=== PATIENT | male | born 1960 | race Caucasian/White ===

== ENCOUNTER → 2018-02-20 | Outpatient (CLI) | payer OTHER ==
[~2018-02-20] MED LIST: ALLOPURINOL 30300 M2 PO; CARVEDILOL12.5 MG PO; CELLCEPT500 MG PO; LEVOTHYROXIN0.125 M1 PO; MULTIVITAMINS1 EAC7 PO; NORVASC5 MG PO; PROGRAF 1 MG1 MG PO; PROTONIX40 M1 PO; SODIUM BICARBO650 M3 PO; VITAMIN D2000 UNIT PO
== END ==
LOC: M.LAB 16:12
DX: E87.5 Hyperkalemia (principal)

== ENCOUNTER → 2018-12-08 | Outpatient (CLI) | payer OTHER ==
[2018-12-08 22:06] LABS: TESTOSTERONE 252 ng/dL (264-916)
== END ==
LOC: M.LAB 13:57
DX: E29.1 Testicular hypofunction (principal)

== ENCOUNTER 2019-04-23 14:16 | Inpatient (IN) | payer OTHER ==
[2019-04-23] VITALS (9 sets, daily range): BP systolic 76–120; BP diastolic 46–62
[~2019-04-23] VITALS: Ht 190.5 cm; Wt 140.9 kg
--- NOTE | ~2019-04-23 | CON ---
[address] [address] CONSULTATION Name: MYCHAL FARR [place] Room: [address] IN .R.#: [id number] Admission: 04/23/19 Attend Phys: Raya Frank MD Discharge: Date of : 62 Report #: [id number] THIS REPORT FOR: //name// CC: FAM unknown [facility] Raya Frank DATE OF SERVICE: 04/24/2019 INFECTIOUS DISEASE CONSULTATION ATTENDING PHYSICIAN: Dr. Frank. REASON FOR CONSULTATION: Liver abscess. HISTORY OF PRESENT ILLNESS: A 58-year-old white man unwell for several days with fevers and significant weakness, so much so he did not attend his dialysis session yesterday. He is admitted. CT scan of abdomen revealed right-sided liver abscess. He has received treatment with vancomycin, cefepime, ceftriaxone and Levaquin. Voices no major complaints at present. Plans are being made for transfer to his transplant unit at [facility]. DRUG ALLERGIES: CODEINE, PENICILLIN, DOES NOT WORK FOR HIM, THAT IS WHAT HIS MOTHER TOLD HIM. MEDICATIONS: At home, he is on treatment with Prograf 1 mg p.o. b.i.d. and mycophenolate mofetil 500 mg b.i.d. as well as carvedilol, pantoprazole, multivitamins, Ursodiol, levothyroxine, cholecalciferol. He is no longer using albuterol, which he elected to take for joint aches and pains, which he thought it was gout, his manager play advising against it. PAST MEDICAL HISTORY: Status post liver transplantation; kidney transplantation, the kidney transplantation has failed and he is requiring hemodialysis; previous cigarette smoking; gastric bypass surgery; arm fistula for dialysis; bladder lift. SOCIAL HISTORY: See H and P, old records. FAMILY HISTORY: See H and P, old records. REVIEW OF SYSTEMS: Nausea, vomiting, diarrhea, fevers at 102.8, malaise, and weakness that appears to have improved some since he is here. PHYSICAL EXAMINATION: GENERAL: Well-developed man, not toxic-looking. VITAL SIGNS: Presenting with following vital signs: Temperature 100.7; pulse [facility] [address] [place] [address] CONSULTATION Name: MYCHAL FARR Room: [address] IN [facility]#: [id number] Admission: 04/23/19 Attend Phys: Raya Frank MD Discharge: Date of : 62 Report #: [id number]; BP low at 103/56, was as low as 76/46; O2 saturation 94% on room air. HEENMT: Within range. NECK: Supple. LUNGS: Clear. HEART: S1, S2. ABDOMEN: Question hepatosplenomegaly. Surgical scars. GENITALIA AND RECTAL: Deferred. EXTREMITIES: Normal. LABORATORY DATA: Sodium 135, potassium 2.9, chloride 97, BUN 62, creatinine 10.1, glucose 123, bilirubin 0.8, alkaline phosphatase mildly elevated at 134, albumin low at 2.6 g/dL. NT-proBNP elevated ____. WBC 11.6, hemoglobin 9.1, platelets 121,000. White blood cell count differential, 83% segmented neutrophils. Influenza A and B rapid test negative. Urinalysis revealed some bacteriuria and hyaline casts, otherwise negative. MICROBIOLOGY DATA: Blood cultures were obtained. Stool culture obtained, they are pending at the time of this dictation. RADIOLOGY EVALUATION: Chest x-ray revealed no acute process. CT scan of the chest revealed hepatic abscess, measuring 5.8 x 5.2 x 4.5 cm with gas in it; status post cholecystectomy; atrophic transplanted kidney; splenomegaly; coronary calcifications. ASSESSMENT: 1. Liver abscess, possibly due to anaerobic organism. 2. Immunosuppressed host, on Prograf and CellCept. 3. Failed renal transplantation. 4. Chronic hemodialysis. 5. Hypotension. SUGGESTIONS: Recommend to continue vancomycin. Improve anaerobic coverage with combination of meropenem 1 g IV daily and Flagyl 500 mg IV every [address] with [address] Frank, thank you for requesting my suggestions. By: [id number] Ochoa MD /nt
--- NOTE | ~2019-04-23 | H ---
[address] [address] HISTORY AND PHYSICAL Name: MYCHAL FARR Room: [address] IN M.R.#: [id number] Admission: 04/23/19 Attend Phys: Raya Frank MD Discharge: Date of : 62 Report #: [id number] THIS REPORT FOR: //name// CC: FAM unknown CLINIC Raya Frank HISTORY OF PRESENT ILLNESS: The patient is well known to me. He has a history of end-stage renal disease, he dialyzes at the [facility]. He has a right upper arm brachiocephalic fistula. The patient has a history of kidney and liver transplant done at . Unfortunately, his kidney transplant has failed and he is back on dialysis. The patient has been back on dialysis for the past more than a year now. The patient was on hemodialysis on Friday when he started feeling dizzy and lightheaded. He noticed very low blood pressures after dialysis. He also started having a febrile illness and started reporting having liquid stools since that time too. He came into the hospital last night because he missed dialysis yesterday as he was too weak to go. He was found to be significantly hypotensive in the hospital. Further workup over here has shown a liver transplant in the transplanted liver. The patient is now on empiric antibiotics. He generally feels better this morning. Blood pressure is slowly improving. He needs dialysis today, so we were consulted for further management and to provide dialysis during the hospital stay. PAST MEDICAL HISTORY: Significant for; 1. Kidney and liver transplant in 2009 at [facility]. 2. Failed kidney transplant, now on dialysis for the past 1 year. 3. Immunosuppression. 4. New diagnosis of a liver abscess. 5. History of gastric bypass. 6. History of bladder surgeries. 7. History of a right upper arm brachiocephalic fistula. 8. History of gallbladder removal in 1989. 9. Alcohol abuse in the past. 10. Smoking. REVIEW OF SYSTEMS: Fever is present, occasional chills, weakness, fatigue, hypotension, vague abdominal pain, diarrhea for the past few days. PERSONAL, SOCIAL AND FAMILY HISTORY: Ongoing smoking and remote history of alcohol use. PHYSICAL EXAMINATION: GENERAL: He appears awake and alert, does not appear to be in distress. He reports much improvement since last night. VITAL SIGNS: His blood pressure this morning is in the low 100s and pulse rate 95. His temperature is still [address]. [place] [address] HISTORY AND PHYSICAL Name: MYCHAL FARR Room: [address]#: [id number] Admission: 04/23/19 Attend Phys: Raya Frank MD Discharge: Date of : 62 Report #: [id number] LUNGS: Diminished bilaterally and crackles in the right base were heard. He has no significant abdominal tenderness. No guarding or rebound tenderness. EXTREMITIES: No lower extremity edema noticed. He has a right upper arm brachiocephalic fistula, which seems to have diminished still, but otherwise a good bruit. LABORATORY DATA: White count is 10.4 down from 11.6 yesterday, hemoglobin is 10.1 and platelets are 113,000. Sodium 136, potassium 3.5, chloride 96, bicarbonate is 20, BUN is 76 and creatinine 11.9. Calcium 8.3, AST and ALT low, alkaline phosphatase is 150 and albumin 2.6. Urinalysis shows 2+ protein, trace ketones and 2+ bilirubin, nonsignificant wbc's or rbc's, many bacteria are noted. C. difficile is pending. IMAGING STUDIES: Show a liver abscess as mentioned above. ASSESSMENT: 1. End-stage renal disease, on hemodialysis Friday, Friday and Friday schedule. 2. Failed kidney transplant. 3. History of liver transplant. 4. New diagnosis of a liver abscess. 5. Immunosuppressed state. 6. Tobacco abuse. 7. Diarrhea for the past few days. PLAN: 1. End-stage renal disease. The patient is to get his dialysis this afternoon. Orders were given to the nurses and the plan was discussed in detail. 2. Sepsis/septic shock. Blood cultures so far are pending. He is immunosuppressed and needs to be treated aggressively. Infectious Disease service is on board. Empiric antibiotic is on board. 3. Considering the patient's complex state of liver, kidney transplant, immunosuppression and now possible infection with liver abscess. The patient would benefit from being in the [facility] and has transplant teams, close management. Infectious Disease discussed with the patient about the same with the nursing staff about the same. Transfer request should be placed on priority. 4. Immunosuppression. He is able to take orally, so Prograf and mycophenolate home doses can be continued for now. 5. We will follow along while the patient is here. Thank you for the consultation. By: [id number] Villalobos MD /velasquez
[2019-04-23 15:18] LABS: ABSOLUTE LYMPHOCYTES 0.8 thou/uL (0.8-5.3); ABSOLUTE MONOCYTES 1.1 thou/uL (0.0-1.2); ABSOLUTE NEUTROPHILS 9.7 thou/uL (1.6-8.1); BASOPHILS 0.4 %; EOSINOPHILS 0.1 %; HEMATOCRIT 27.4 % (42.0-52.0); HEMOGLOBIN 9.1 gm/dL (14.0-18.0); LYMPHOCYTES 6.7 %; MCH 31.4 pg (26.0-34.0); MCHC 33.1 g/dL (28.0-37.0); MCV 94.8 fL (80.0-100.0); MONOCYTES 9.5 %; NUCLEATED RBCS 0 /100WBC; PLATELET COUNT* 121 thou/uL (150-400); POLYS 83.3 %; RBC 2.89 mil/uL (4.50-6.00); RDW-CV 14.6 % (10.5-14.5); WBC 11.6 thou/uL (4.0-11.0)
[2019-04-23 15:33] LABS: APTT 39.5 Seconds (25.0-31.3); INR 1.1; PROTIME 11.1 Seconds (9.20-11.50)
[2019-04-23 15:43] LABS: CALCIUM 7.8 mg/dL (8.5-10.1); CREATININE 10.1 mg/dL (0.6-1.3)
[2019-04-23 15:45] LABS: POTASSIUM 2.9 mmol/L (3.5-5.1)
[2019-04-23 15:54] LABS: ALBUMIN 2.6 g/dL (3.4-5.0); TOTAL BILIRUBIN 0.8 mg/dL (<0.1-1.0); TOTAL PROTEIN 6.6 g/dL (6.4-8.2)
--- NOTE | 2019-04-23 15:54 | EKG ---
[place] [address] ELECTROCARDIOGRAM REPORT Name: MYCHAL FARR Room: [facility]#: [id number] Admission: 04/23/19 Attend Phys: Discharge: Date of : 62 Report #: [id number] THIS REPORT FOR: //name// [facility] ED Test Date: 2019-04-23 Test Time: 14:26:57 Pat Name: MYCHAL FARR Department: Room: Gender: M Backend Java Developer: : 1960 Requested By: Oliver Birmingham Order Number: [id number] MD: Karl Graves Measurements Intervals [place] Rate: 76 P: 43 IN: 195 QRS: -38 QRSD: 102 T: 27 QT: 400 QTc: 450 Interpretive Statements Sinus rhythm Consider left atrial enlargement Abnormal R-wave progression, late transition Left ventricular hypertrophy Compared to ECG 07/26/2008 12:18:19 Left ventricular hypertrophy now present Electronically Signed On 04-23-2019 15:54:25 COOLER ROOM WORKER by Karl Graves [email or web address] <ELECTRONICALLY SIGNED> By: Karl Graves MD, [facility] 04/23/19 1554 1426 142 Karl Graves MD, FACC /EPI
[2019-04-23 16:39] LABS: INFLUENZA A ANTIGEN Negative (Negative); INFLUENZA B ANTIGEN Negative (Negative)
[2019-04-23] MEDS ORDERED: URSO FORTE500 M1 PO (18:23)
[2019-04-23 18:53] LABS: URINE BLOOD NEGATIVE (Negative); URINE CLARITY CLEAR; URINE COLOR YELLOW; URINE GLUCOSE-RANDOM NEGATIVE (Negative); URINE KETONES TRACE (Negative); URINE LEUKOCYTES-REFLEX NEGATIVE (Negative); URINE NITRITE-REFLEX NEGATIVE (Negative); URINE PROTEIN 2+ (Negative); URINE UROBILINOGEN 0.2 E.U./dl (0.2-1.0)
[2019-04-23 19:06] LABS: ICTOTEST (BILI CONFIRMATORY) Negative (Negative); URINE BILIRUBIN 2+ (Negative)
[2019-04-23 19:14] LABS: HYALINE CASTS 4-10 Moderate /LPF (None Seen); SQUAMOUS 0-3 Few /LPF (0-3)
[2019-04-23 19:15] LABS: URINE RBC 0-2 Rare /HPF (0-2); URINE WBC-REFLEX 0-5 Rare /HPF (0-5)
[2019-04-23 19:16] LABS: BACTERIA-REFLEX 1-9 Few /HPF (None Seen); CRYSTALS None Seen /LPF (None Seen)
[2019-04-24] VITALS (10 sets, daily range): BP systolic 94–106; BP diastolic 50–61
--- NOTE | 2019-04-24 03:25 | NUR ---
RECEIVED REPORT AND ASSUMED CARE AT 1710. PT TRANSPORTED FROM ED TO ROOM 007. PT DENIES COMPLAINTS OF PAIN. VSS. ASSESSMENT/ADMISSION COMPLETED CHARTED. PT UP AD AVE, ON RA. BED LOCKED IN LOWEST POSITION, CALL LIGHT WITHIN REACH. PT TO TRANSFER TO MEDICAL R/T CT RESULTS, PT HEPATIC TRANSPLANT DONE AT . PER CONTACT NOT BE BE COMPLETED TONIGHT/ WILL REINITIATE TRANSFER AGAIN 04/24/19 IN AM. PT INFORMED.
[2019-04-24 04:11] LABS: HEMATOCRIT 29.9 % (42.0-52.0); HEMOGLOBIN 10.1 gm/dL (14.0-18.0); MCHC 33.7 g/dL (28.0-37.0); MCV 94.9 fL (80.0-100.0); MPV 9.7 fl. (7.2-11.1); RBC 3.15 mil/uL (4.50-6.00); RDW-CV 14.5 % (10.5-14.5); WBC 10.4 thou/uL (4.0-11.0)
[2019-04-24 04:34] LABS: ALBUMIN 2.6 g/dL (3.4-5.0); CALCIUM 8.3 mg/dL (8.5-10.1); CREATININE 11.9 mg/dL (0.6-1.3); MAGNESIUM 2.1 mg/dL (1.8-2.4); POTASSIUM 3.5 mmol/L (3.5-5.1); TOTAL BILIRUBIN 0.9 mg/dL (<0.1-1.0)
--- NOTE | 2019-04-24 06:10 | NUR ---
PT STATES THAT HE DOES NOT WANT TO GO TO FOR THE WEEKEND. STATES THAT THEY WILL JUST HAVE HIM "SITTING THERE UNTIL FRIDAY" STATES HE WILL LEAVE HERE AMA, THEN CONTACT HIS HEPATIC DR ON FRIDAY TO CALL AND TO REQUEST HIS MEDICAL RECORDS AND THEN BE ADMITTED TO ON FRIDAY. DISCUSSED RISK OF LEAVING AMA, WORSENING OF CONDITION, DELAYING OF TREATMENT R/T ABX, HYPOTENSION. PT VERBALIZES UNDERSTANDING. PT DOES WANT TO RECEIVE DIALYSIS THIS AM BEFORE LEAVING.
--- NOTE | 2019-04-24 08:14 | NUR ---
0730 ASSUMED CARE OF PATIENT. PLEASE SEE DOCUMENTED ASSESSMENT. DR AGUILAR TO SEE PATIENT AND ORDERS NOTED.
--- NOTE | 2019-04-24 08:15 | NUR ---
DR HERNANDEZ HERE AND SPOKE WITH PATIENT. PLAN IS TO TRANSFER TO WHICH HAS NOW ACCEPTED THE PATIENT.OK WITH DR HERNANDEZ FOR PATIENT NOT TO HAVE CONTINUOUS PULSE OXIMETRY
--- NOTE | 2019-04-24 09:38 | NUR ---
0840 REPORT CALLED TO TIM AT . PATIENT HAS SIGNED EMTALA FORM AND AGREES TO TRANSFER TO .
--- NOTE | 2019-04-24 10:38 | NUR ---
CALL TO DR AGUILAR TO ADVISE HIM OF PATIENT TRANSFER TO [facility]
--- NOTE | 2019-04-24 11:09 | NUR ---
1045 REPORT GIVEN TO [facility].SPOUSE PRESENT.PT LEFT FOR [facility]
== END 2019-04-24 10:45 | disposition short-term general hospital (02) | DRG 871 ==
LOC: M.ERS 14:16 → M.TBA-ER 16:22 → M.ICU 17:18
PROVIDERS: Emergency Medicine Emergency Medical Services; ADMIT Internal Medicine
PROC: 5A1D70Z Performance of Urinary Filtration, Intermittent, Less than 6 Hours Per Day (ICD-10-PCS; principal; 2019-04-24)
DX: A41.9 Sepsis, unspecified organism (principal); R65.21 Severe sepsis with septic shock; K75.0 Abscess of liver; N18.6 End stage renal disease; Z94.0 Kidney transplant status; E66.9 Obesity, unspecified; F17.210 Nicotine dependence, cigarettes, uncomplicated; R13.19 Other dysphagia; E87.6 Hypokalemia; I95.9 Hypotension, unspecified; F10.10 Alcohol abuse, uncomplicated; Z90.49 Acquired absence of other specified parts of digestive tract; Z68.38 Body mass index [BMI] 38.0-38.9, adult; Z95.1 Presence of aortocoronary bypass graft; Z88.6 Allergy status to analgesic agent; Z88.0 Allergy status to penicillin; Z88.8 Allergy status to other drugs, medicaments and biological substances; Z99.2 Dependence on renal dialysis